=== PATIENT | female | born 1945 | race Caucasian/White ===

== ENCOUNTER → 2021-07-03 | Outpatient (CLI) | payer MEDICARE ==
--- NOTE | 2021-07-03 12:46 | Diagnostic Imaging Report ---
INDICATION: Bilateral knee pain. TIME OF EXAM: 10:32 AM FINDINGS: Multiple views bilateral knees were obtained. Both knees demonstrate severe medial compartmental degenerative change with complete loss of the joint space. There is marginal osteophyte formation. There is chondrocalcinosis of the lateral compartments bilaterally. Moderate patellofemoral compartmental degenerative changes seen bilaterally. There is no joint effusion. No fracture. IMPRESSION: Significant osteoarthritic changes bilaterally, particularly involving the medial compartments bilaterally. No acute bony abnormality is detected. Dictated by: Dictated on workstation # [id number]
== END ==
LOC: ORTHO 10:10
PROVIDERS: ATTEND Orthopaedic Surgery
DX: M17.0 Bilateral primary osteoarthritis of knee (principal)
CPT/HCPCS: 20610; 73564; G0463; 99213